=== PATIENT | male | born 1970 | race Caucasian/White ===

== ENCOUNTER 2017-12-27 14:59 | Emergency (ER) | payer OTHER ==
[~2017-12-27] VITALS: Ht 175.3 cm; Wt 85.5 kg
[2017-12-27 15:05] VITALS: BP 133/94
== END 2017-12-27 15:57 | disposition home or self-care (01) ==
LOC: ED 15:51
DX: Z00.00 Encounter for general adult medical examination without abnormal findings (principal); R21 Rash and other nonspecific skin eruption
CPT/HCPCS: 99283